=== PATIENT | female | born 1975 | race African-American/Black ===

== ENCOUNTER 2018-05-12 16:11 | Emergency (ER) | payer OTHER, MEDICAID ==
[~2018-05-12] VITALS: Ht 157.5 cm; Wt 104.0 kg
[2018-05-12] MEDS ORDERED: KETOROLAC 30MG/ML VIAL IV ONE (19:00)
[2018-05-12] MEDS ORDERED: METHOCARBAMOL 500MG TABLET PO ONE (19:00)
[2018-05-12 20:29] VITALS: BP 135/89
== END 2018-05-12 20:33 | disposition home or self-care (01) ==
LOC: ER 16:11
DX: G56.03 Carpal tunnel syndrome, bilateral upper limbs (principal)
CPT/HCPCS: 73130; 81025; 96374; 99284; J1885